=== PATIENT | male | born 1990 ===

== ENCOUNTER 2023-03-16 17:32 | Emergency (ER) | payer BC ==
[2023-03-16] MEDS ORDERED: Diphtheria,Pertussis(Acell),Tetanus Vaccine 0.5 ML Syringe IM ONE (18:32)
== END 2023-03-16 19:02 | disposition home or self-care (01) ==
LOC: MW.ED 17:32
DX: T25.222A Burn of second degree of left foot, initial encounter (principal); T31.0 Burns involving less than 10% of body surface; Z23 Encounter for immunization; X11.0XXA Contact with hot water in bath or tub, initial encounter
CPT/HCPCS: 90471; 90715; 99283; 99283-25

== ENCOUNTER 2024-02-03 21:33 | Emergency (ER) | payer BC ==
[2024-02-03] MEDS: Ibuprofen 600 MG Tab PO ONE (22:02)
[2024-02-03] MEDS: Acetaminophen 500 MG Tab PO ONE (22:03)
== END 2024-02-03 23:32 | disposition home or self-care (01) ==
LOC: MW.ED 21:33
DX: B34.9 Viral infection, unspecified (principal)
CPT/HCPCS: 99283; A9270